=== PATIENT | male | born 1960 ===

== ENCOUNTER → 2017-06-09 | Outpatient (CLI) | payer BC ==
--- NOTE | 2017-06-09 13:05 | XR ---
EXAMINATION TYPE: XR chest 2V DATE OF EXAM: 06/09/2017 HISTORY: R06.02: Shortness of breath. REFERENCE: Previous study dated 10/27/2014. FINDINGS: There is a questionable 1.7 cm oval nodule in the right middle lobe just above the diaphrag m. Lungs otherwise clear. Pleural spaces are clear. The heart is minimally prominent. There is minor hypertrophic spondylosis within the spine.. IMPRESSION: 1. NO ACUTE INTRATHORACIC ABNORMALITY. 2. QUESTIONABLE RIGHT MIDDLE LOBE PULMONARY NODULE. A NONEMERGENT CT SCAN OF THE CHEST WOULD BE SUGGE STED.
== END | disposition home or self-care (01) ==
LOC: RADXRMAIN 12:25
PROVIDERS: ATTEND Family Medicine
DX: R06.02 Shortness of breath (principal)
CPT/HCPCS: 71020

== ENCOUNTER → 2017-06-24 | Outpatient (CLI) | payer BC ==
--- NOTE | 2017-06-24 14:59 | CT ---
EXAMINATION TYPE: CT chest w con DATE OF EXAM: 06/24/2017 COMPARISON: Radiograph 06/09/2017 HISTORY: 57-year-old male pulmonary nodule TECHNIQUE: Contiguous axial scanning of the chest after the administration of 100 mL of Omnipaque 300 . Coronal/sagittal reconstructions performed. CT DLP: 669mGycm. Automatic exposure control utilized for a dose reduction. FINDINGS: The heart is normal size without pericardial effusion. Mild coronary vessel calcifications are presen t. Aneurysm of the ascending aorta at 4.3 cm. Conventional arch vessel branching anatomy. No thoracic lymphadenopathy seen. No consolidation or pleural effusion. Radiographic finding is suggestive of summation density as no s uspicious pulmonary nodule is identified particularly in the right base. Visualized upper abdomen shows diffuse low-attenuation of the hepatic parenchyma with mild overall st ool burden. Endplate spondylosis and degenerative disc disease midthoracic spine. No osseous destructive process. IMPRESSION: 1. Radiographic findings most suggestive of summation artifact as no suspicious pulmonary nodule is s een. 2. Aneurysmal ascending aorta at 4.3 cm. 3. Hepatic steatosis. Correlate with LFTs, lipid profile, and patient risk factors.
== END | disposition home or self-care (01) ==
LOC: RADCTMAIN 13:54
PROVIDERS: ATTEND Family Medicine
DX: I71.2 Thoracic aortic aneurysm, without rupture (principal); R91.1 Solitary pulmonary nodule
CPT/HCPCS: 71260; Q9967

== ENCOUNTER → 2018-11-18 | Outpatient (CLI) | payer BC ==
--- NOTE | 2018-11-18 22:54 | MR ---
EXAMINATION TYPE: MR lumbar spine wo con DATE OF EXAM: 11/18/2018 COMPARISON: NONE HISTORY: Lumbar region radiculopathy per order. Pain into left leg and buttocks for 2.5 weeks per pat ient. TECHNIQUE: Multiplanar, multisequence imaging of the lumbar spine is performed without IV contrast. FINDINGS: Sagittal images of the lumbar spine show vertebral body heights and alignment to appear sat isfactory. Multilevel disc desiccation is seen with mild to moderate multilevel disc space narrowing. There are small posterior disc herniations efface the anterior thecal sac at multiple levels in the mid to lower lumbar spine.. The conus medullaris is normal in position and signal ending at superior L2 level. The bone marrow signal intensity is within normal limits. Mild to moderate multilevel ant erior spurring is present. Axial images beginning at labeled T12-L1 level which is felt within normal limits. Axial images at L1 -L2 level show mild broad disc bulge spinal canal is preserved and the bilateral neural foramina are patent. Axial images at the L2-L3 level show mild broad disc bulge minimally effaces the anterior thecal sac on axial image 18, bilateral neural foramina are patent. Axial images at the L3-L4 level shows mild broad-based posterior disc protrusion mildly effacing the anterior thecal sac, bilateral neural foramina show mild right greater than left anterior inferior ne ural foraminal narrowing. Axial images at L4-L5 level shows mild to moderate facet degenerative changes and ligamentum flavum h ypertrophy. There is mild/moderate broad based disc protrusion effacing the anterior thecal sac. Ther e is mild bilateral anterior inferior neural foraminal narrowing at this level identified. Axial images at the L5-S1 level shows moderate facet degenerative changes bilaterally. There is moder ate broad disc bulge with a left paracentral/foraminal disc extrusion component extending superiorly seen on axial images 2 through 4 effacing lateral recess as well as likely central left S1 nerve. The re is moderate to severe left-sided neural foraminal narrowing effacing the left L5 nerve seen on sag ittal image 3. There is [id number] right-sided inferior neural foraminal narrowing. There is partial visualization of at least 2.3 cm oval T2 hyperintense lesion right kidney axial imag e 25 favoring simple cyst. IMPRESSION: Multilevel degenerative changes in the lumbar spine as detailed above, attention to L5-S1 level where eccentric disc herniation encroaches central left S1 nerve and exiting left L5 nerve and likely accounting for patient's radiculopathy type symptoms.
== END | disposition home or self-care (01) ==
LOC: RADMRIMAIN 17:06
PROVIDERS: ATTEND Internal Medicine Rheumatology
DX: M51.17 Intervertebral disc disorders with radiculopathy, lumbosacral region (principal); M47.26 Other spondylosis with radiculopathy, lumbar region
CPT/HCPCS: 72148

== ENCOUNTER → 2022-01-27 | Outpatient (CLI) | payer OTHER ==
[2022-01-27 15:13] LABS: ALT 37 U/L (10-49); AST 26 U/L (14-35); African American GFR (CKD) 109.5 (60.0-200.0); Albumin 4.6 g/dL (3.8-4.9); Albumin/Globulin Ratio 1.41 (1.60-3.17); Alkaline Phosphatase 58 U/L (41-126); Blood Urea Nitrogen 12.6 mg/dL (9.0-27.0); Calcium 10.3 mg/dL (8.7-10.3); Carbon Dioxide 25.5 mmol/L (20.0-27.5); Chloride 98 mmol/L (96-109); Chol/HDL Ratio 5.22 Ratio; Globulin 3.3 g/dL (1.6-3.3); Glucose 118 mg/dL (70-110); LDL Cholesterol,Calculated 128.2 mg/dL (0.0-131.0); Non-African American GFR(CKD) 94.5 (60.0-200.0); Potassium 4.6 mmol/L (3.5-5.5); Sodium 137 mmol/L (135-145); Total Protein 7.9 g/dL (6.2-8.2)
== END | disposition home or self-care (01) ==
LOC: LABWHC1 09:30
PROVIDERS: ATTEND Nurse Practitioner
DX: I10 Essential (primary) hypertension (principal); E78.5 Hyperlipidemia, unspecified
CPT/HCPCS: 36415; 80053; 80061; 84443

== ENCOUNTER 2024-02-23 10:59 | Day surgery (SDC) | payer OTHER ==
[2024-02-18 13:39] VITALS: BMI 34.7
[~2024-02-23 10:59] MED LIST: LIDOCAINE 1% (10MG/ML) FOR IV START INTRADERMA PRN
[2024-02-23] MEDS: LACTATED RINGERS 1,000 ML IV SCH (12:30)
[2024-02-23] MEDS ORDERED: PROPOFOL 10 MG/ML 20 ML VIAL IV ONE (12:39)
--- NOTE | 2024-02-23 12:55 | P.PCN ---
Date of Procedure: 02/23/24 Procedure(s) Performed: BRIEF HISTORY: Patient is a 63-year-old pleasant white male scheduled for an elective colonoscopy as a part of screening for colon cancer. His mother was diagnosed with colon cancer. PROCEDURE PERFORMED: Colonoscopy. PREOPERATIVE DIAGNOSIS: Screening for colon cancer/family history of colon cancer. IV sedation per Anesthesia. PROCEDURE: After informed consent was obtained, the patient, was brought into the endoscopy unit. IV sedation was administered by Anesthesia under continuous monitoring. Digital rectal examination was normal. Initially the Olympus CF-160 flexible video colonoscope was then inserted in the rectum, gradually advanced into the cecum without any difficulty. Careful examination was performed as the scope was gradually being withdrawn. Ileocecal valve and the appendiceal orifice were visualized and appeared normal. Prep was excellent. Mucosa of the cecum, ascending colon, transverse colon, descending colon, sigmoid colon, and rectum appeared normal. Scattered sigmoid diverticulosis. Retroflexion was performed in the rectum and small internal hemorrhoids were seen. The patient tolerated the procedure well. IMPRESSION: Normal-appearing colon from rectum to cecum with no evidence of colorectal neoplasia. Small internal hemorrhoids Scattered sigmoid diverticulosis RECOMMENDATIONS: Findings of this examination were discussed with the patient as well as his family. He was advised to have repeat screening colonoscopy in 5 years because of the family history of colon cancer
[2024-02-23 13:04] VITALS: TEMP 97
[2024-02-23 13:59] VITALS: BP 134/81; PULSE 56; RESP 14
== END 2024-02-23 14:11 | disposition home or self-care (01) ==
LOC: ORWHC2ENDO 10:59
PROVIDERS: ATTEND Internal Medicine Gastroenterology
DX: Z12.11 Encounter for screening for malignant neoplasm of colon (principal); K57.30 Diverticulosis of large intestine without perforation or abscess without bleeding; K64.8 Other hemorrhoids; I10 Essential (primary) hypertension; E78.5 Hyperlipidemia, unspecified; I25.2 Old myocardial infarction; I25.10 Atherosclerotic heart disease of native coronary artery without angina pectoris; Z87.891 Personal history of nicotine dependence; Z79.01 Long term (current) use of anticoagulants; Z79.82 Long term (current) use of aspirin; Z80.0 Family history of malignant neoplasm of digestive organs; Z79.899 Other long term (current) drug therapy; Z98.890 Other specified postprocedural states
CPT/HCPCS: J2704; G0105